=== PATIENT | male | born 1995 | race Caucasian/White ===

== ENCOUNTER 2018-03-19 22:42 | Emergency (ER) | payer BC, OTHER ==
[2018-03-19] MEDS ORDERED: LORATADINE (CLARITIN) 10 MG TAB ONE (22:46)
[2018-03-19] MEDS ORDERED: diphenhydrAMINE 50 MG/ML INJ (BENADRYL) ONE (22:49)
[2018-03-19] MEDS ORDERED: RT-ALBUTEROL SULF 2.5 MG/3 ML PRE-MIX VIAL INH STA (22:49)
[2018-03-19] MEDS ORDERED: raNItidine 50 MG/2 ML INJ (ZANTAC) ONE (22:49)
[2018-03-19] MEDS ORDERED: methylPREDNISolone 125 MG (Solu-MEDROL) VIAL ONE (22:49)
[2018-03-19] MEDS ORDERED: raNItidine 50 MG/2 ML INJ (ZANTAC) IJ STA (22:49)
[2018-03-19] MEDS ORDERED: methylPREDNISolone 125 MG (Solu-MEDROL) VIAL IVP ONE (23:00)
[2018-03-19] MEDS ORDERED: diphenhydrAMINE 50 MG/ML INJ (BENADRYL) IVP ONE (23:00)
[2018-03-19] MEDS ORDERED: LORATADINE (CLARITIN) 10 MG TAB PO ONE (23:00)
--- NOTE | 2018-03-20 00:11 | ED Integumentary General ---
General Chief Complaint: Allergic Reaction Stated Complaint: ALLERGIC REACTION Source: patient Exam Limitations: no limitations History of Present Illness Date Seen by Provider: Mar 19, 2018 Time Seen by Provider: 22:30 Initial Comments Patient presents to ER by private conveyance with a chief complaint that he is having 2 months of generalized itching but then tonight got worse she's having red hives all over his body. He says he was at the [employer] today but does not expose any allergens is aware of. He does not have any allergies to medicines. Does not take any medicines. He has not eaten anything that is not usually eating. He denies any new soaps, lotions, colognes, detergents etc. Allergies and Home Medications Allergies Coded Allergies: No Known Drug Allergies (Unverified , 03/19/18) Patient Home Medication List Home Medication List Reviewed: Yes Constitutional: No chills, No diaphoresis EENTM: No hearing loss, No ear pain Respiratory: No cough, No phlegm; short of breath, wheezing Cardiovascular: No chest pain, No edema Gastrointestinal: No abdominal pain, No constipation, No diarrhea, No nausea, No vomiting Genitourinary: No discharge, No dysuria Musculoskeletal: No back pain, No joint pain Skin: pruritus, rash (hives all 4 extremities, neck and trunk) Past Xxhxamw-Ubvirs-Mfugcd Hx Patient Social History Alcohol Use: Denies Use Recreational Drug Use: No Smoking Status: Never a Smoker Recent Hopitalizations: No Physical Abuse: No Sexual Abuse: No Mistreated: No Fear: No Past Medical History Surgeries: No Respiratory: No Cardiac: No Neurological: No Genitourinary: No Gastrointestinal: No Musculoskeletal: No Endocrine: No HEENT: No Cancer: No Psychosocial: No Nursing Suicide Risk Score: 0 Integumentary: No Blood Disorders: No Physical Exam Vital Signs Vital Signs - First Documented 03/19/18 23:18 Pulse Ox 100 O2 Delivery Room Air Capillary Refill : General Appearance: WD/WN, no apparent distress HEENT: PERRL/EOMI, normal ENT inspection, TMs normal, pharynx normal Neck: non-tender, supple, normal inspection Cardiovascular: normal peripheral pulses, regular rate, rhythm Respiratory: chest non-tender, no respiratory distress, no accessory muscle use , wheezing (scant left-sided) Gastrointestinal: normal bowel sounds, non tender, soft Extremities: normal range of motion, non-tender Neurologic/Psychiatric: alert, normal mood/affect, oriented x 3, other (mildly anxious) Skin: rash (hives all 4 extremities and trunk) Progress/Results/Core Measures My Orders Orders - NAVEEN RIOJAS Loratadine Tablet (Claritin Tablet) (03/19/18 22:46) Loratadine Tablet (Claritin Tablet) (03/19/18 23:00) Ranitidine Injection (Zantac Injection) (03/19/18 22:49) Diphenhydramine Injection (Benadryl Inje (03/19/18 23:00) Saline Lock/Iv-Start (03/19/18 22:49) Methylprednisolone Sod Succ (Solu-Medrol (03/19/18 23:00) Albuterol Pre-Mix Nebs (Rt) (Proventil (03/19/18 22:49) Svn Small Volume Nebulizer (03/19/18 22:49) Ranitidine Injection (Zantac Injection) (03/19/18 22:49) Diphenhydramine Injection (Benadryl Inje (03/19/18 22:49) Methylprednisolone Sod Succ (Solu-Medrol (03/19/18 22:49) Medications Given in ED Current Medications Medications Dose Ordered Sig/Sy Route Start Time Stop Time Status Last Admin Dose Admin Diphenhydramine HCl 25 mg ONCE ONCE IVP 03/19/18 23:00 03/19/18 23:01 DC 03/19/18 23:03 25 MG Loratadine 10 mg ONCE ONCE PO 03/19/18 23:00 03/19/18 23:01 DC 03/19/18 23:32 10 MG Methylprednisolone Sodium Succinate 125 mg ONCE ONCE IVP 03/19/18 23:00 03/19/18 23:01 DC 03/19/18 23:04 125 MG Vital Signs/I&O 03/19/18 23:18 Pulse Ox 100 O2 Delivery Room Air Progress Note : Time: 00:17 Progress Note We gave Benadryl, loratadine, Solu-Medrol, ranitidine as well as an albuterol breathing treatment which improved his wheezing. Departure Impression Primary Impression: Urticaria of unknown origin Disposition: 01 HOME, SELF-CARE Condition: Improved Departure-Patient Inst. Decision time for Depature: 00:27 Referrals: NO,LOCAL PHYSICIAN (PCP) Primary Care Physician Patient Instructions: Arnold (SONDRA), LOCAL PHYSICIAN LIST Add. Discharge Instructions: Daily you should be taking 10 mg of either Claritin or Zyrtec for the next month or until this clears up. If you have itching in between then you can use Benadryl 25 mg every 6 hours as needed. 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 Establish care with a primary care provider and discuss your 2 months of itching and pursue further workup. If you have difficulty breathing or swallowing your secretions you should follow-up in the ER immediately. All discharge instructions reviewed with patient and/or family. Voiced understanding. Scripts Prednisone (Prednisone) 20 Mg Tab 40 MG PO DAILY for 5 Days, #10 TAB 0 Refills Prov: NAVEEN RIOJAS 03/20/18 Loratadine (Claritin) 10 Mg Tablet 10 MG PO DAILY for 30 Days, #30 TAB 0 Refills Prov: NAVEEN RIOJAS 03/20/18 NAVEEN RIOJAS Mar 20, 2018 00:11
[2018-03-20] MEDS ORDERED: PRD20T PO (00:30)
[2018-03-20] MEDS ORDERED: LORA10TA76 PO (00:30)
[2018-03-20 00:37] VITALS: BP 108/69
== END 2018-03-20 00:37 | disposition home or self-care (01) ==
LOC: ER 22:44
DX: L50.9 Urticaria, unspecified (principal)
CPT/HCPCS: 94640; 94664; 96374; 96375